=== PATIENT | male | born 1990 | race African-American/Black ===

== ENCOUNTER 2018-09-09 07:14 | Emergency (ER) | payer SELFPAY ==
[~2018-09-09] VITALS: Ht 182.9 cm; Wt 77.1 kg
--- NOTE | 2018-09-09 07:14 | NUR ---
PT AMBULATED TO [facility]
[2018-09-09 07:17] VITALS: BP 102/60
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
[2018-09-09] MEDS ORDERED: BACITRACIN OINT 500 UNITS/GM PKT TP SCH (07:35)
[2018-09-09 07:41] VITALS: BP 112/70
--- NOTE | 2018-09-09 07:41 | NUR ---
Patient discharged with v/s stable. Written and verbal after care instructions given and explained. Patient verbalized understanding. Ambulatory with steady gait. All questions addressed prior to discharge. Advised to follow up with PMD. PREBOOK FORM GIVEN TO RYAN TORRES TO BOOK BY ED.
== END 2018-09-09 07:41 ==
LOC: MED 07:14
DX: S70.01XD Contusion of right hip, subsequent encounter (principal); S00.01XA Abrasion of scalp, initial encounter; M54.5 Low back pain; F12.10 Cannabis abuse, uncomplicated; Z98.890 Other specified postprocedural states; V43.52XA Car driver injured in collision with other type car in traffic accident, initial encounter; Y93.89 Activity, other specified; Y92.411 Interstate highway as the place of occurrence of the external cause; Y99.8 Other external cause status
CPT/HCPCS: 90471; 90715; 99283